=== PATIENT | male | born 1990 | race Caucasian/White ===

== ENCOUNTER 2020-08-21 11:32 | Emergency (ER) | payer OTHER ==
[~2020-08-21] VITALS: Ht 182.9 cm; Wt 79.4 kg
[2020-08-21 11:47] VITALS: BP 103/82; Ht 182.9 cm; Wt 79.4 kg
== END 2020-08-21 15:45 | disposition home or self-care (01) ==
LOC: ED 11:32
DX: L73.9 Follicular disorder, unspecified (principal)

== ENCOUNTER 2020-09-30 14:32 | Emergency (ER) | payer OTHER ==
[~2020-09-30] VITALS: Ht 182.9 cm; Wt 78.9 kg
[2020-09-30 15:01] VITALS: Ht 182.9 cm; Wt 78.9 kg
[2020-09-30 16:39] VITALS: BP 122/71
[2020-10-01 05:07] LABS: RAPID PLASMA REAGIN Non Reactive (Non Reactive)
== END 2020-09-30 17:53 | disposition home or self-care (01) ==
LOC: ED 14:32
PROVIDERS: Emergency Medicine
DX: N34.2 Other urethritis (principal)
CPT/HCPCS: 87491; 87591; J0696